=== PATIENT | female | born 1985 | race African-American/Black ===

== ENCOUNTER 2022-11-13 08:24 | Emergency (ER) | payer SELFPAY ==
[2022-11-13] MEDS ORDERED: Iopamidol 370 76% 100 ML VIAL ONE (08:33)
[2022-11-13 09:13] LABS: INR-International Normal Ratio 1.1; Prothrombin Time 14.6 sec (12.0-14.7)
[2022-11-13 09:15] LABS: PTT 34.9 sec (22.9-36.1)
[2022-11-13 09:16] LABS: ALT (SGPT) 11 U/L (8-55); AST (SGOT) 15 U/L (5-34); Albumin 4.1 g/dL (3.5-5.0); Alkaline Phosphatase 69 U/L (40-110); Anion Gap 13 mmol/L (10-20); BUN (Urea Nitrogen) 9 mg/dL (7.0-18.7); Bilirubin, Total 0.4 mg/dL (0.2-1.2); Calc. Creatinine Clearance 0 mL/min (70-130); Calcium 9.2 mg/dL (7.8-10.44); Carbon Dioxide 23 mmol/L (22-29); Chloride 107 mmol/L (98-107); Estimated GFR 101; Globulin 3.7 g/dL (2.4-3.5); Glucose 98 mg/dL (70-105); Potassium 3.7 mmol/L (3.5-5.1); Protein, Total 7.8 g/dL (6.0-8.3); Sodium 139 mmol/L (136-145)
[2022-11-13] MEDS ORDERED: Aspirin Chewable 81 MG TAB ONE (09:19)
[2022-11-13 09:22] LABS: Hemoglobin 9.4 g/dL (12.0-16.0); Manual Diff?? YES; Mean Corpuscular HGB CONC 30.2 g/dL (32.0-36.0); Mean Corpuscular Hemoglobin 22.5 pg (27.0-31.0); Mean Corpuscular Volume 74.4 fl (78.0-98.0); Mean Platelet Volume 6.7 fL (7.4-10.4); Platelet Count 477 10x3/uL (130-400); RBC Distribution Width 17.1 % (11.5-14.5); Red Blood Cell (RBC) Count 4.19 mill/uL (4.20-5.40); White Blood Cell (WBC) Count 7.1 10x3/uL (4.8-10.8)
[2022-11-13 09:23] LABS: Anisocytosis SLIGHT = 6-15 cells (100X) (0-5/hpf); Band 4 % (5-11); Eosinophils 2 % (0-10); Lymphocytes 37 % (21-51); Monocytes 6 % (0-10)
[2022-11-13 09:24] LABS: Platelet Adequacy Comment Appears Increased
[2022-11-13 10:39] LABS: Bilirubin Negative (Negative); Blood, Urine Negative (Negative); Clarity Clear (Clear); Glucose, Urine (Dipstick) Negative (Negative); Ketone, Urine Negative (Negative); Leukocyte Negative (Negative); Nitrite Negative (Negative); Protein, Urine (Dipstick) Negative (Neg-Trace); RBC/HPF 0-3 HPF (0-3); Urobilinogen 0.2 mg/dL (Less than 2); pH, Urine 5.5 (5.0-9.0)
[2022-11-13 10:40] LABS: Bacteria/HPF Rare-Few HPF (None Seen); CAUTI Indications for Culture Dysuria,urgency,freq; Squamous Epithelial 0-3 HPF (0-3); WBC/HPF 0-3 HPF (0-3)
[2022-11-13 10:42] LABS: Urine Culture Reflex No No
[2022-11-13 10:55] LABS: Amphetamine Not Detected (NotDetected); Barbiturates Screen Not Detected (NotDetected); Benzodiazepine Screen Not Detected (NotDetected); Cocaine Metabolite Screen Not Detected (NotDetected); Methadone Not Detected (NotDetected); Methamphetamine Not Detected (NotDetected); Opiate Screen Not Detected (NotDetected); Oxycodone Screen Not Detected (NotDetected); Phencyclidine (PCP) Not Detected (NotDetected); THC/Cannabinoid Screen Not Detected (NotDetected); Tricyclic Screen Not Detected (NotDetected)
== END 2022-11-13 13:34 | disposition short-term general hospital (02) ==
LOC: MADERS 08:24
DX: R53.1 Weakness (principal); R03.0 Elevated blood-pressure reading, without diagnosis of hypertension
CPT/HCPCS: 36416; 70450; 70496; 70498; 80053; 80306; 81001; 84484; 85025; 85610; 85730; 93005; Q9967

== ENCOUNTER 2023-05-20 13:01 | Emergency (ER) | payer OTHER, SELFPAY ==
[2023-05-20] MEDS ORDERED: Ibuprofen 800 MG TAB ONE (14:00)
[2023-05-20] MEDS ORDERED: Orphenadrine Citrate 60 MG/2 ML VIAL ONE (14:00)
== END 2023-05-20 14:25 | disposition home or self-care (01) ==
LOC: MADERS 13:01
DX: S46.911A Strain of unspecified muscle, fascia and tendon at shoulder and upper arm level, right arm, initial encounter (principal); X50.0XXA Overexertion from strenuous movement or load, initial encounter
CPT/HCPCS: 96372; 99283; J2360

== ENCOUNTER 2023-10-06 17:01 | Emergency (ER) | payer OTHER, SELFPAY ==
[~2023-10-06 17:01] MED LIST: Iopamidol 370 76% 100 ML VIAL ONE
[2023-10-06] MEDS ORDERED: Lidocaine 1% PF 5 ML VIAL ONE (17:52)
[2023-10-06 18:17] LABS: Bilirubin Negative (Negative); Blood, Urine Negative (Negative); Glucose, Urine (Dipstick) Negative (Negative); Ketone, Urine Trace mg/dL (Negative); Leukocyte Negative (Negative); Nitrite Negative (Negative); Protein, Urine (Dipstick) Negative (Neg-Trace)
[2023-10-06 18:18] LABS: Clarity Hazy (Clear)
[2023-10-06 18:26] LABS: Bacteria/HPF Rare-Few HPF (None Seen); CAUTI Indications for Culture Dysuria,urgency,freq; Mucous/LPF Rare LPF (<2+); RBC/HPF 0-3 HPF (0-3); Urine Culture Reflex No No; WBC/HPF 0-3 HPF (0-3)
[2023-10-06 18:57] LABS: ALT (SGPT) 27 U/L (8-55); AST (SGOT) 23 U/L (5-34); Albumin 4.3 g/dL (3.5-5.0); Alkaline Phosphatase 70 U/L (40-110); Anion Gap 15 mmol/L (10-20); BUN (Urea Nitrogen) 13 mg/dL (7.0-18.7); Bilirubin, Total 0.6 mg/dL (0.2-1.2); Calc. Creatinine Clearance 0 mL/min (70-130); Calcium 9.9 mg/dL (7.8-10.44); Carbon Dioxide 27 mmol/L (22-29); Chloride 101 mmol/L (98-107); Estimated GFR 64; Globulin 3.9 g/dL (2.4-3.5); Glucose 137 mg/dL (70-105); Magnesium 2.1 mg/dL (1.6-2.6); Protein, Total 8.2 g/dL (6.0-8.3); Sodium 140 mmol/L (136-145)
[2023-10-06 19:01] LABS: Critical Call Chemistry EMS.CLJ@1900; Potassium 2.5 mmol/L (3.5-5.1)
[2023-10-06 19:09] LABS: Hematocrit 40.3 % (36.0-47.0); Hemoglobin 11.8 g/dL (12.0-16.0); Mean Corpuscular HGB CONC 29.4 g/dL (32.0-36.0); Mean Corpuscular Hemoglobin 24.3 pg (27.0-31.0); Mean Corpuscular Volume 82.7 fl (78.0-98.0); Mean Platelet Volume 6.3 fL (7.4-10.4); Platelet Count 413 10x3/uL (130-400); RBC Distribution Width 17.3 % (11.5-14.5); Red Blood Cell (RBC) Count 4.88 mill/uL (4.20-5.40); White Blood Cell (WBC) Count 7.7 10x3/uL (4.8-10.8)
[2023-10-06 19:10] LABS: Anisocytosis SLIGHT = 6-15 cells (100X) (0-5/hpf); Eosinophils 2 % (0-10); Hypochromia SLIGHT = 6-15 cells (100X) (0-5/hpf); Lymphocytes 36 % (21-51); MDiff Complete? YES; Manual Diff?? YES; Monocytes 2 % (0-10); Neutrophil 49 % (42-75); Platelet Adequacy Comment Appears Increased; Polychromasia SLIGHT = 2-3 cells (100X) (0-2/hpf); Reactive Lymphocytes 11 % (0-10)
[2023-10-06] MEDS ORDERED: Ondansetron PF 4 MG/2 ML Vial ONE ×2 (19:24→20:50)
[2023-10-06] MEDS ORDERED: Potassium Bicarbonate/Cit Ac 20 MEQ TAB ONE (19:47)
[2023-10-06] MEDS ORDERED: Ketorolac Tromethamine 30 MG (1 mL) VIAL ONE (20:48)
== END 2023-10-06 21:03 | disposition short-term general hospital (02) ==
LOC: MADERS 17:01
DX: N83.202 Unspecified ovarian cyst, left side (principal); N75.1 Abscess of Bartholin's gland; E87.6 Hypokalemia; I10 Essential (primary) hypertension; E11.9 Type 2 diabetes mellitus without complications; Z79.84 Long term (current) use of oral hypoglycemic drugs
CPT/HCPCS: 36415; 74177; 80053; 81001; 83735; 85025; 87070; 87205; 96374; 96375; 96376; J1885; J2405; Q9967

== ENCOUNTER 2024-04-13 20:52 | Emergency (ER) | payer OTHER | END 2024-04-13 22:29 | disposition home or self-care (01) | LOC: MADERS 20:52 | DX: S93.601A Unspecified sprain of right foot, initial encounter (principal); E11.9 Type 2 diabetes mellitus without complications; I10 Essential (primary) hypertension; W19.XXXA Unspecified fall, initial encounter | CPT/HCPCS: 99283 ==